=== PATIENT | female | born 1965 | race Caucasian/White ===

== ENCOUNTER → 2023-10-29 08:19 | Outpatient (REF) | payer OTHER, SELFPAY | LOC: RCS 08:19 | PROVIDERS: ATTENDING PHYSICIAN Physician Assistant | DX: R07.9 Chest pain, unspecified (principal) | CPT/HCPCS: 93017 ==

== ENCOUNTER → 2024-03-24 14:53 | Outpatient (REF) | payer OTHER, SELFPAY | LOC: HWRAD 14:53 | PROVIDERS: ATTENDING PHYSICIAN Physician Assistant | DX: E04.9 Nontoxic goiter, unspecified (principal); Z83.49 Family history of other endocrine, nutritional and metabolic diseases | CPT/HCPCS: 76536 ==

== ENCOUNTER → 2024-04-14 14:59 | Outpatient (REF) | payer OTHER, SELFPAY | LOC: HWRAD 14:59 | PROVIDERS: ATTENDING PHYSICIAN Physician Assistant | DX: R10.32 Left lower quadrant pain (principal) | CPT/HCPCS: 74177; Q9967 ==

== ENCOUNTER 2025-01-09 20:31 | Emergency (ER) | payer OTHER, SELFPAY ==
[2025-01-09 20:42] VITALS: BP 127/83
[2025-01-09 21:06] LABS: Hematocrit 38.3 % (37.0-47.0); Hemoglobin 12.8 g/dL (12.0-16.0); Mean Corp Hgb Conc. 33.4 g/dL (33.0-37.0); Mean Corpuscular Volume 86.7 fL (81.0-99.0); Nucleated Red Blood Cells % 0 %; Platelet Count 250 10^3/uL (130-400); Red Cell Dist. Width 12.4 % (11.5-14.5)
[2025-01-09 21:31] LABS: ALT (SGPT) 12 U/L (0-35); AST (SGOT) 22 U/L (14-36); Albumin 4.5 g/dl (3.5-5.0); Alkaline Phosphatase 67 U/L (38-126); Blood Urea Nitrogen 15 mg/dl (7-17); Calcium 9.5 mg/dl (8.4-10.2); Carbon Dioxide 32 mmol/L (22-30); Chloride 100 mmol/L (98-107); Glucose 102 mg/dl (70-99); Potassium 4.6 mmol/L (3.5-5.1); Sodium 136 mmol/L (135-145); Total Protein 7.4 g/dl (6.3-8.2); eGFR > 60.00
[2025-01-09 22:37] VITALS: BP 111/61
[2025-01-09 23:00] VITALS: BP 108/78
--- NOTE | 2025-01-10 00:01 | ED.GENMED ---
History of Present Illness
General
Chief Complaint: Abnormal Lab Value
Source: patient
Exam Limitations: none
Time Seen by Provider: 01/09/25 23:46
Nursing documentation reviewed up to this point in time: agreed with
History of Present Illness
History of Present Illness:
59 yo female w h/o on 12/16, developing severe leg cramps, getting up to get a glass of water, thinking she was dehydrated, and fainting. Daughter found her on floor, presents today with generalized pressure in head, around eyes and temples. Is
concerned she hit her head that day. She felt 'tightness' in her legs 8:30, no significant cramping, but panicked afraid the cramps would get as bad as they were on 12/16, fearful of passing out again so came here for evaluation. She denies n/v.
Denies vision change.
She called her PCP was told to try Camila and has an appointment for evaluation 2 days.
Past History
Past History
ED Past Medical History: None
ED Past Surgical History: Gynecological
Social History
Tobacco: Non-smoker
Alcohol: Occasional
Personal:
Living: with family
Employment: Employed
Review of Systems
Review of Systems
Allergies reviewed?: Yes
All Other Systems: ROS reviewed and negative except as documented in HPI and ROS
Constitutional: Denies fever
Respiratory: Denies trouble breathing
Cardiac: Denies chest pain
ABD/GI: Denies abdominal pain or nausea
Musculoskeletal: Reports other (legs feel 'a little tight')
Skin: Reports no symptoms
Neurological: Reports other (pressure in head and behind eyes since fall 12/16)
Phy Exam
Physical Exam
Physical Exam:
GENERAL: No acute distress. A&Ox3.
CONSTITUTIONAL: Afebrile.
EYES: clear, conjunctivae normal
ENMT: moist mucus membranes, Pharynx nl
RESPIRATORY: Regular respirations, nonlabored, lungs clear.
CARDIOVASCULAR: Regular rate and rhythm, no murmurs, no rubs.
GI: Soft, nontender, normal BS
MUSCULOSKELETAL: Moves with ease. Well perfused. No swelling warmth or pain lower extremities. Distal neurovascular intact.
SKIN: Warm, dry, pink
PSYCH: Normal mood and affect. Well kept, interactive and appropriate
NEUROLOGIC: Awake, alert and oriented. Speech clear. Cranial nerves II through XII intact. [id number] intact. Ambulates well with steady gait. No focal neurological deficits
Course
Orders/Labs/Results
Orders:
Orders
01/09/25 20:50
Electrocardiogram (*1) Urgent
Reason for Study: Other
Other Reason for Exam: electrolyte inbalance
Cardiology Consult: Abbie Clark
EKG- Treatment ONCE
01/09/25 20:59
CBC/With Diff [Complete Blood Count/With Diff] Urgent
Comprehensive Metabolic Panel Urgent
Magnesium Urgent
Comment: ADD ON
01/09/25 23:48
Add On- LAB Urgent
Tests Added?: magnesium
01/10/25 00:01
CT Head W/o Iv Contrast Urgent
Comment:
Reason For Exam: pressure in head after fall, LOC 2 weeks ago
Abnormal Lab Results
01/09/25
20:59
Carbon Dioxide 32 H mmol/L
(22-30)
Glucose 102 H mg/dl
(70-99)
01/09/25 20:59
01/09/25 20:59
Vital Signs
Initial and Last Documented VS:
Initial Vital Signs
Temp Pulse Resp BP Pulse Ox
97.7 F 83 20 127/83 99
01/09/25 20:42 01/09/25 20:42 01/09/25 20:42 01/09/25 20:42 01/09/25 20:42
Last Documented Vital Signs
Temp Pulse Resp BP Pulse Ox
97.7 F 75 14 100/65 100
01/09/25 20:42 01/10/25 01:37 01/10/25 01:37 01/10/25 01:35 01/10/25 01:37
MDM/Problems Addressed
Differential Diagnosis Includes:
1. Concussion
2.Electrolyte Imbalance
3. Dehydration
4. Peripheral Neuropathy
5. Tension Headache
6. Sinusitis
7. Intracranial Hematoma
MDM/Problems Addressed:
59 yo female w h/o on 12/16, developing severe leg cramps, getting up to get a glass of water, thinking she was dehydrated, and fainting. Daughter found her on floor, presents today with generalized pressure in head, around eyes and temples. Is
concerned she hit her head that day. She felt 'tightness' in her legs 8:30, no significant cramping, but panicked afraid the cramps would get as bad as they were on 12/16, fearful of passing out again so came here for evaluation. She denies n/v.
Denies vision change.
She called her PCP was told to try Camila and has an appointment for evaluation 2 days.
No significant leg cramping, bilateral LE's exam normal
EKG: Sinus rhythm with PACs, RBBB
Plan:
Check electrolytes for dehydration, magnesium
Although a CT scan cannot diagnose a concussion, A computed tomography (CT) scan was discussed to rule out any significant intracranial pathology such as bleeding, skull , the patient seeks reassurance from its result
CBC normal CMP normal
*Pulse Oximetry
SaO2: 99
Oxygen Mode of Delivery: Room air
Patient hypoxic: not evaluated
*EKG
EKG Intrepretation Date: 01/10/25
Interpretation: abnormal
Heart Rate: 82
Rate: normal
Rhythm: sinus
[place]: normal axis
Interval: normal interval
QRS Pattern: right bundle branch block
Ischemia: no ischemia
*Critical Care Note
Total Time (30-74mins, 75-104mins- exclusive of procedures): Not Applicable
ED Attending Note
-
Portions of this chart may have been created with voice recognition software.� Occasional wrong word or��sound alike� substitutions may have occurred due to the inherent limitations of voice recognition software.
Discharge Plan
Departure
Patient Disposition: Home (Routine Discharge)
Date of Disposition: 01/10/25
Time of Disposition: 01:43
Patient with high blood pressure during this ER visit?: No
Condition: Good
Discharge Problem:
Headache
Instructions: Concussion in adults - ED discharge instructions
Referrals:
Roxana Urban PA-C [Family Provider, Internal Medicine] - As needed
Stand Alone Forms: Return to Work
Activity Restrictions/Additional Instructions:
As we discussed, head CT is normal. your workup here tonight shows nothing worrisome.
FYI I have provided you with instructions on concussion.
Tylenol or ibuprofen as needed for your head pressure
I would continue the Camila for at least a week before saying it is not working.
See your primary care provider for recheck if not much improved in one week.
Interventions
Interventions:
*Risk Screen - Suicide Last Done: 01/09/25 20:42
*General Assessment Last Done: 01/09/25 20:42
*Neglect/Abuse Screening Last Done: 01/09/25 20:42
*ED- Fall Risk Assessment Last Done: 01/09/25 20:42
*ED COVID-19 Vaccine History Last Done: 01/09/25 20:42
*Nursing Disposition Last Done: 01/10/25 01:57
Discharge Date and Time
Discharge Date/Time: 01/10/25 01:58
Print Language: [id number]
[2025-01-10 00:20] LABS: Magnesium 2.0 mg/dl (1.6-2.3)
[2025-01-10 01:00] VITALS: BP 100/63
[2025-01-10 01:35] VITALS: BP 100/65
== END 2025-01-10 01:58 | disposition home or self-care (01) ==
LOC: EMR 20:31
PROVIDERS: Emergency Medicine; EMERGENCY PHYSICIAN Emergency Medicine; FAMILY PHYSICIAN Physician Assistant
DX: R51.9 Headache, unspecified (principal); E86.0 Dehydration; I45.10 Unspecified right bundle-branch block; I49.1 Atrial premature depolarization
CPT/HCPCS: 99284; 70450; 80053; 83735; 85025; 93005

== ENCOUNTER → 2025-05-01 13:01 | Outpatient (REF) | payer OTHER, SELFPAY | LOC: PAVMRI 13:01 | PROVIDERS: ATTENDING PHYSICIAN Physician Assistant | DX: R51.9 Headache, unspecified (principal); Z86.69 Personal history of other diseases of the nervous system and sense organs; Z87.898 Personal history of other specified conditions | CPT/HCPCS: 70553; A9575 ==

== ENCOUNTER → 2025-06-07 14:18 | Outpatient (REF) | payer OTHER, SELFPAY | LOC: RAD 14:18 | PROVIDERS: ATTENDING PHYSICIAN Physician Assistant | DX: R60.0 Localized edema (principal) | CPT/HCPCS: 93970 ==